=== PATIENT | female | born 1975 | race African-American/Black ===

== ENCOUNTER 2017-06-27 18:29 | Emergency (ER) | payer BC ==
[~2017-06-27] VITALS: Ht 157.5 cm; Wt 108.0 kg
[~2017-06-27 18:29] MED LIST: CYCL-36 PO; DICL50 PO; LISI-586 PO; METF500 PO
[2017-06-27 18:38] VITALS: BP 123/74; PULSE 81; RESP 16; TEMP 99; O2SAT 97
[2017-06-27] MEDS ORDERED: LISI-519 PO (18:49)
[2017-06-27] MEDS ORDERED: METF500T PO (18:49)
[2017-06-27] MEDS ORDERED: DICL50TA PO (18:49)
[2017-06-27] MEDS ORDERED: AMLO10 PO (18:49)
[2017-06-27] MEDS ORDERED: HYDR-3535 PO (18:49)
--- NOTE | 2017-06-27 19:53 | RADRPT ---
EXAM DATE/TIME: 06/27/2017 19:21 [facility] COMPARISON: No previous studies available for comparison. INDICATIONS : Cough, sore throat for 3 days MEDICAL HISTORY : None. SURGICAL HISTORY : None. ENCOUNTER: Initial ACUITY: 3 days PAIN SCORE: 4/10 LOCATION: Bilateral chest FINDINGS: PA and lateral views of the chest demonstrate the lungs to be symmetrically aerated without evidence of mass, infiltrate or effusion. The cardiomediastinal contours are unremarkable. Osseous structure s are intact. CONCLUSION: No acute disease. There is no evidence of pneumonia. Dylan Galicia MD on June 27, 2017 at 19:51 Board Certified Radiologist. This report was verified electronically.
--- NOTE | 2017-06-27 20:03 | PD ---
HPI . Cough and sore throat 2 days Chief Complaint: ENT Complaint Time Seen by Provider: 18:52 Travel History International Travel<30 days: No Contact w/Intl Traveler<30days: No Traveled to known affect area: No History of Present Illness HPI 41-year-old female presents emergency department for evaluation of cough and sore throat accompanied with voice loss 2 days. Patient states she thinks she has been running a fever at home. She's been taking naproxen to help with the throat swelling and that is also helping her voice with speaking. Patient states she has a productive cough at night and the phlegm is thick and green. Patient is currently a smoker although she states she is trying to quit. The patient is afebrile in triage and states she had a fever earlier today at work of 100. Patient works in [employer] services and is concerned about working while being sick. Patient denies any ear pain, nasal congestion, abdominal pain, nausea, vomiting or diarrhea. PFSH Past Medical History Cardiovascular Problems: Yes (HTN) Diabetes: Yes (TYPE 2) Diminished Hearing: No Hypertension: Yes Immunizations Current: Yes : 4 Para: 4 Tubal Ligation: Yes (1998) Past Surgical History Gynecologic Surgery: Yes Other Surgery: Yes (PELVIC MESH) Social History Alcohol Use: Yes (6 PK A WEEK) Tobacco Use: Yes (2 CIGS) Substance Use: No Allergies-Medications (Allergen,Severity, Reaction): Coded Allergies: shrimp (Unverified Allergy, Mild, LIP SWELLING, 06/27/17) Reported Meds & Prescriptions Reported Meds & Active Scripts Active Tessalon Perles (Benzonatate) 100 Mg Cap 100 Mg PO TID PRN 5 Days Reported Diclofenac Potassium 50 Mg Tab 50 Mg PO DAILY Lortab (Hydrocodone-Acetaminophen) 10-325 Mg Tab 0.5 Tab PO Q6H PRN Metformin (Metformin HCl) 500 Mg Tab 500 Mg PO BIDPC Norvasc (Amlodipine Besylate) 10 Mg Tab 10 Mg PO DAILY Lisinopril 5 Mg Tab 5 Mg PO DAILY Review of Systems Except as stated in HPI: all other systems reviewed are Neg Physical Exam Narrative GENERAL: Well-nourished, well-developed 41 year old female patient in no acute distress. Nontoxic appearing. SKIN: Focused skin assessment warm/dry. HEAD: Normocephalic. Atraumatic. EYES: No scleral icterus. No injection or drainage. EARS: Bilateral pinnae and external canals appear within normal limits. Bilateral tympanic membranes without erythema, dullness or perforation. THROAT: Mild pharyngeal injection, no exudates or tonsillar hypertrophy. Airway is patent. NECK: Supple, trachea midline. No JVD or lymphadenopathy. CARDIOVASCULAR: Regular rate and rhythm without gallops or rubs. Murmur appreciated. RESPIRATORY: Breath sounds equal bilaterally. No accessory muscle use. No wheezing, rhonchi or crackles noted GASTROINTESTINAL: Abdomen soft, non-tender, nondistended. MUSCULOSKELETAL: No cyanosis, or edema. Data Data Last Documented VS Vital Signs Date Time Temp Pulse Resp B/P (MAP) Pulse Ox O2 Delivery O2 Flow Rate FiO2 06/27/17 18:38 99.0 81 16 123/74 (90) 97 Orders Orders Chest, Pa & Lat (06/27/17 19:05) Ed Discharge Order (06/27/17 20:15) MDM Medical Decision Making Medical Screen Exam Complete: Yes Emergency Medical Condition: Yes Differential Diagnosis Different diagnosis included upper respiratory infection, bronchitis, pneumonia Narrative Course 41-year-old female presents emergency department for evaluation of cough, sore throat and fever 2 days. 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 Patient states that she has a productive cough and is coughing up thick green phlegm mostly at night and she is trying to sleep. Patient is a current smoker. There is no crackles, rales or wheezing noted in bilateral lungs however due to the high risk factors and the patient's history and chest x-ray is ordered. Chest x-ray shows no acute disease. Patient is discharged home with instructions for supportive care during her bronchitis and laryngitis exacerbation and instructions return to the emergency Department with any worsening condition. Given instructions to follow up with her primary care and a prescription for Tessalon Perles. Diagnosis Primary Impression: Acute bronchitis Qualified Codes: J20.9 - Acute bronchitis, unspecified Referrals: Primary Care Physician Patient Instructions: Acute Bronchitis (ED), General Instructions Departure Forms: Tests/Procedures, Work Release Special Instructions: No work until fever free 24 hours. Additional Instructions: Please return to emergency department if your symptoms return or worsen. Follow up with your primary care provider. Take medications as prescribed. Hot tea and honey may help soothe the throat. No work until fever free for 24 hours. Alternate ibuprofen and Tylenol as needed for pain or fevers. Stay hydrated, get enough rest, diet as tolerated Med/Other Pt SpecificInfo: Prescription(s) given Scripts Benzonatate (Tessalon Perles) 100 Mg Cap 100 MG PO TID Y for COUGH for 5 Days, CAP 0 Refills Prov: Vidya Land 06/27/17 Disposition: 01 DISCHARGE HOME Condition: Stable Vidya Land Jun 27, 2017 20:03
[2017-06-27] MEDS ORDERED: BENZ100 PO (20:10)
== END 2017-06-27 20:21 | disposition home or self-care (01) ==
LOC: PHEFT 18:29
DX: J20.9 Acute bronchitis, unspecified (principal); E11.9 Type 2 diabetes mellitus without complications; I10 Essential (primary) hypertension; F17.210 Nicotine dependence, cigarettes, uncomplicated; Z79.84 Long term (current) use of oral hypoglycemic drugs
CPT/HCPCS: 71020; 99283

== ENCOUNTER 2017-10-09 20:23 | Emergency (ER) | payer BC ==
[~2017-10-09 20:23] MED LIST changes: +AMLO10 PO; +BENZ100 PO; -CYCL-36 PO; -DICL50 PO; +DICL50TA PO; +HYDR-3535 PO; +LISI-519 PO; -LISI-586 PO; -METF500 PO; +METF500T PO
[2017-10-09 20:26] VITALS: BP 173/102; PULSE 74; RESP 16; TEMP 98.7; O2SAT 99
[2017-10-09 21:16] LABS: AUTOMATED NEUTROPHIL # 3.3 TH/MM3 (1.8-7.7); BASOPHIL % 0.4 % (0.0-2.0); EOSINOPHIL # 0.1 TH/MM3 (0-0.4); EOSINOPHIL % 1.1 % (0.0-4.0); HEMATOCRIT 37.7 % (35.0-46.0); HEMOGLOBIN 12.7 GM/DL (11.6-15.3); LYMPH % 39.4 % (9.0-44.0); LYMPHOCYTE # 2.6 TH/MM3 (1.0-4.8); MEAN CELL VOLUME 90.5 FL (80.0-100.0); MEAN CORPUSCULAR HEMOGLOBIN 30.4 PG (27.0-34.0); MEAN CORPUSCULAR HGB CONC 33.6 % (32.0-36.0); MEAN PLATELET VOLUME 7.9 FL (7.0-11.0); MONOCYTE # 0.6 TH/MM3 (0-0.9); NEUT % 50.1 % (16.0-70.0); PLATELET COUNT 304 TH/MM3 (150-450); RED BLOOD COUNT 4.16 MIL/MM3 (4.00-5.30); RED CELL DISTRIBUTION WIDTH 13.8 % (11.6-17.2); WHITE BLOOD COUNT 6.7 TH/MM3 (4.0-11.0)
[2017-10-09 21:36] LABS: BICARBONATE 29.5 MEQ/L (21.0-32.0); CALCIUM 8.9 MG/DL (8.5-10.1); CREATININE 0.66 MG/DL (0.50-1.00)
[2017-10-09 21:43] LABS: AMORPHOUS SEDIMENT, URINE RARE; BILIRUBIN, URINE NEG (NEG); BLOOD, URINE NEG (NEG); GLUCOSE,URINE NEG (NEG); KETONE, URINE NEG (NEG); NITRITE,URINE NEG (NEG); PH, URINE 5.5 (5.0-8.5); SQUAMOUS EPITHELIAL CELL URINE 8 /hpf (0-5); URINE COLOR LIGHT-YELLOW (YELLW/STRAW); URINE LEUKOCYTE ESTERASE NEG (NEG)
[2017-10-09] MEDS ORDERED: HYDR-3583 PO (22:26)
[2017-10-09] MEDS ORDERED: LISI40TA PO ×2 (22:26→22:31)
[2017-10-09] MEDS ORDERED: AMLO5TAB2 PO ×2 (22:26→22:31)
[2017-10-09] MEDS ORDERED: MELO7.5T27 PO (22:27)
[2017-10-09 22:28] VITALS: BP 166/94; PULSE 85; RESP 18; O2SAT 99
--- NOTE | 2017-10-09 22:31 | PD ---
HPI Chief Complaint: Hypertension Time Seen by Provider: 22:14 Travel History International Travel<30 days: No Contact w/Intl Traveler<30days: No Traveled to known affect area: No History of Present Illness HPI The patient is a 42 year old female who presents to the [facility] emergency department with a history of being out of her blood pressure medication for approximately the past month. She reports that she last saw her primary care physician approximately a year ago. She was told that she has no refills on her usual prescription when she tried to get the prescription filled. She is normally on amlodipine 5 mg daily, lisinopril 40 mg daily. Her primary care physician is Dr. Jef Astorga. She reports that she has noticed her blood pressure being up over the last 2-3 days. She reports that she has been fatigued. She reports having a frontal headache with nausea. She denies having any vomiting or diarrhea. Last bowel movement was earlier today. On review of systems otherwise she denies having any recent fevers or chills, cough or congestion, neck pain, chest pain, shortness of breath, abdominal pain , vomiting, diarrhea, urinary symptoms, or neurologic symptoms. LMP: A month ago [facility] Past Medical History Narrative Medical The patient's past medical history is significant for hypertension, diabetes mellitus, chronic low back pain with degenerative disc disease. Cardiovascular Problems: Yes Diabetes: Yes Patient Takes Glucophage: Yes (10/09/2017 1600) Diminished Hearing: No Hypertension: Yes Immunizations Current: Yes ?: Not LMP: ablasion : 4 Para: 4 Tubal Ligation: Yes (1998) Past Surgical History Narrative Surgical The patient's past surgical history is significant for an endometrial ablation, bilateral tubal ligation. Gynecologic Surgery: Yes Other Surgery: Yes (PELVIC MESH) Social History Alcohol Use: Yes (on weekend) Tobacco Use: No Substance Use: No Allergies-Medications (Allergen,Severity, Reaction): Coded Allergies: shrimp (Unverified Allergy, Mild, LIP SWELLING, 06/27/17) Reported Meds & Prescriptions Reported Meds & Active Scripts Active Lisinopril 40 Mg Tab 40 Mg PO DAILY Amlodipine (Amlodipine Besylate) 5 Mg Tab 5 Mg PO DAILY Reported Meloxicam 7.5 Mg Tab 10 Mg PO HS Hydrocodone-Acetamin 10-325 mg (Hydrocodone/Acetaminophen) 10 Mg-325 Mg Tablet 1 Tab PO Q4-6H PRN Metformin (Metformin HCl) 500 Mg Tab 500 Mg PO BIDPC Review of Systems Except as stated in HPI: all other systems reviewed are Neg General / Constitutional: No: Fever Eyes: No: Visual changes HENT: Positive: Headaches, No: Rhinorrhea, Congestion, Neck Stiffness, Neck Pain Cardiovascular: No: Chest Pain or Discomfort Respiratory: No: Cough, Shortness of Breath Gastrointestinal: Positive: Nausea, No: Vomiting, Diarrhea, Abdominal Pain Genitourinary: No: Dysuria Musculoskeletal: No: Pain Skin: No Rash Neurologic: Positive: Headache, No: Weakness, Focal Abnormalities, Change in Mentation, Slurred Speech, Sensory Disturbance Psychiatric: No: Depression Endocrine: No: Polydipsia Hematologic/Lymphatic: No: Easy Bruising Physical Exam Narrative General: The patient is a well-developed well-nourished female in no acute distress. Head and Neck exam: Head is normocephalic atraumatic. Eyes: EOMI, pupils are equal round and reactive to light. Nose: Midline septum with pink mucous membranes Mouth: Dentition unremarkable. Moist mucus membranes. Posterior oropharynx is not erythematous. No tonsillar hypertrophy. Uvula midline. Airway patent. Neck: No palpable lymphadenopathy. No nuchal rigidity. No thyromegaly. Negative Brudzinski, negative Kernig sign Cardiovascular: Regular rate and rhythm without murmurs, gallops, or rubs. Lungs: Clear to auscultation bilaterally. No wheezes, rhonchi, or rales. Abdomen: Soft, without tenderness to palpation in all 4 quadrants of the abdomen. No guarding, rebound, or rigidity. Normal bowel sounds are audible. No tenderness on palpation of McBurney's point. Negative Ramirez sign. Extremities: No clubbing, cyanosis, or edema. 2+ pulses in all 4 extremities. No calf tenderness on palpation. Back: No spinous process tenderness to palpation. No costovertebral angle tenderness to palpation. Neurologic Exam: Cranial nerves 2-12 were intact on exam. Strength is 5/5 in all 4 extremities. No sensory deficits noted. Skin Exam: No rash noted. Intact skin that is warm and dry. Data Data Last Documented VS Vital Signs Date Time Temp Pulse Resp B/P (MAP) Pulse Ox O2 Delivery O2 Flow Rate FiO2 10/09/17 22:28 85 18 166/94 (118) 99 Room Air 10/09/17 20:26 98.7 Orders Orders Complete Blood Count With Diff (10/09/17 20:36) Basic Metabolic Panel (Bmp) (10/09/17 20:36) Urinalysis - C+S If Indicated (10/09/17 20:36) Electrocardiogram (10/09/17 22:24) Ct Brain W/O Iv Contrast(Rout) (10/09/17 22:24) Iv Access Insert/Monitor (10/09/17 22:24) Ecg Monitoring (10/09/17 22:24) Oximetry (10/09/17 22:24) Ed Urine Pregnancytest Poc (10/09/17 22:24) Ondansetron Odt (Zofran Odt) (10/09/17 23:30) Lisinopril (Prinivil) (10/09/17 23:30) Ed Discharge Order (10/09/17 23:20) Labs Laboratory Tests Test 10/09/17 20:50 10/09/17 20:55 White Blood Count 6.7 TH/MM3 Red Blood Count 4.16 MIL/MM3 Hemoglobin 12.7 GM/DL Hematocrit 37.7 % Mean Corpuscular Volume 90.5 FL Mean Corpuscular Hemoglobin 30.4 PG Mean Corpuscular Hemoglobin Concent 33.6 % Red Cell Distribution Width 13.8 % Platelet Count 304 TH/MM3 Mean Platelet Volume 7.9 FL Neutrophils (%) (Auto) 50.1 % Lymphocytes (%) (Auto) 39.4 % Monocytes (%) (Auto) 9.0 % Eosinophils (%) (Auto) 1.1 % Basophils (%) (Auto) 0.4 % Neutrophils # (Auto) 3.3 TH/MM3 Lymphocytes # (Auto) 2.6 TH/MM3 Monocytes # (Auto) 0.6 TH/MM3 Eosinophils # (Auto) 0.1 TH/MM3 Basophils # (Auto) 0.0 TH/MM3 CBC Comment DIFF FINAL Differential Comment Blood Urea Nitrogen 16 MG/DL Creatinine 0.66 MG/DL Random Glucose 127 MG/DL Calcium Level 8.9 MG/DL Sodium Level 137 MEQ/L Potassium Level 4.1 MEQ/L Chloride Level 102 MEQ/L Carbon Dioxide Level 29.5 MEQ/L Anion Gap 6 MEQ/L Estimat Glomerular Filtration Rate 119 ML/MIN Urine Color LIGHT-YELLOW Urine Turbidity HAZY Urine pH 5.5 Urine Specific Davy 1.018 Urine Protein NEG mg/dL Urine Glucose (UA) NEG mg/dL Urine Ketones NEG mg/dL Urine Occult Blood NEG Urine Nitrite NEG Urine Bilirubin NEG Urine Urobilinogen LESS THAN 2.0 MG/DL Urine Leukocyte Esterase NEG Urine RBC 1 /hpf Urine Squamous Epithelial Cells 8 /hpf Urine Amorphous Sediment RARE Microscopic Urinalysis Comment CULT NOT INDICATED MDM Medical Decision Making Medical Screen Exam Complete: Yes Emergency Medical Condition: Yes Medical Record Reviewed: Yes Differential Diagnosis Intracranial hemorrhage, versus tension headache, versus migraine headache, versus hypertension related headache due to medication noncompliance Narrative Course During the course of the patient's emergency department visit, the patient's history, examination, and differential diagnosis were reviewed with the patient. The patient was placed on a compliance monitor with oximetry and frequent blood pressure monitoring. The patient had IV access obtained and blood work sent for analysis. An EKG was ordered, CT scan of the brain was ordered. The patient was initially provided Zofran for nausea and Tylenol for headache. The patient was started on lisinopril 20 mg p.o. 1, systolic blood pressure on arrival back in the room is 166, diastolic 94. The patient's laboratory studies were reviewed and remarkable for A white count of 6.7, hemoglobin 12.7, platelets 304 with 9.0 monocytes, basic metabolic profile is remarkable for a glucose of 127, urinalysis is within normal limits. Radiology studies were reviewed and remarkable for a CT scan of the brain that shows no acute abnormality. The patient will be discharged home started back on her usual antihypertensive medications that she is currently out of. She is encouraged to make a follow- up appointment with Dr. Astorga in the next 2 days for a complete physical. The patient is resting comfortably and feels better, is alert and in no distress. The patient's results and examination findings were discussed with the patient. The repeat examination is unremarkable and benign. The history, exam, diagnostic testing, and current condition do not suggest any significant pathology to warrant further testing, continued ED treatment, admission, or surgical evaluation at this point. The vital signs have been stable. The patient does not have uncontrollable pain, intractable vomiting, or other significant symptoms. The patient's condition is stable and appropriate for discharge. The patient will pursue further outpatient evaluation with a primary care physician or other designated or consulting physician as indicated in the discharge instructions. The patient expressed understanding and was agreeable with this plan. Diagnosis Primary Impression: Benign essential hypertension Additional Impression: History of medication noncompliance Referrals: Primary Care Physician 2 days Patient Instructions: Acute Headache (ED), General Instructions, Hypertension ( ED) Med/Other Pt SpecificInfo: Prescription(s) given Scripts Lisinopril (Lisinopril) 40 Mg Tab 40 MG PO DAILY for Blood Pressure Management, #30 TAB 0 Refills Prov: Mikaela Toure MD 10/09/17 Amlodipine (Amlodipine) 5 Mg Tab 5 MG PO DAILY for Blood Pressure Management, #30 TAB 0 Refills Prov: Mikaela Toure MD 10/09/17 Disposition: 01 DISCHARGE HOME Condition: Stable Mikaela Toure MD Oct 09, 2017 22:31
--- NOTE | 2017-10-09 23:15 | RADRPT ---
EXAM DATE/TIME: 10/09/2017 23:05 [facility] COMPARISON: No previous studies available for comparison. INDICATIONS : Cephalgia. RADIATION DOSE: 56.35 CTDIvol (mGy) MEDICAL HISTORY : Hypertension. Diabetes. SURGICAL HISTORY : Tubal ligation. ENCOUNTER: Initial ACUITY: 1 day PAIN SCALE: 10/10 LOCATION: cranial TECHNIQUE: Multiple contiguous axial images were obtained of the head. Using automated exposure control and adj ustment of the mA and/or kV according to patient size, radiation dose was kept as low as reasonably a chievable to obtain optimal diagnostic quality images. DICOM format image data is available electro nically for review and comparison. FINDINGS: CEREBRUM: The ventricles are normal for age. No evidence of midline shift, mass lesion, hemorrhage or acute in farction. No extra-axial fluid collections are seen. POSTERIOR FOSSA: The cerebellum and brainstem are intact. The 4th ventricle is midline. The cerebellopontine angle i s unremarkable. EXTRACRANIAL: The visualized portion of the orbits is intact. SKULL: The calvaria is intact. No evidence of skull fracture. CONCLUSION: Normal examination. Edu Carr MD on October 09, 2017 at 23:13 Board Certified Radiologist. This report was verified electronically.
[2017-10-09] MEDS ORDERED: ONDANSETRON ODT 4 MG TAB PO ONE (23:30)
[2017-10-09] MEDS ORDERED: LISINOPRIL 20 MG TAB PO ONE (23:30)
[2017-10-09] MEDS ORDERED: ACETAMINOPHEN 325 MG TAB PO ONE (23:30)
[2017-10-09 23:31] VITALS: BP 161/96
--- NOTE | 2017-10-10 21:25 | EKG ---
Date Performed: 10/09/2017 Time Performed: 22:45:48 PTAGE: 42 years EKG: Sinus rhythm POSSIBLE LEFT ATRIAL ENLARGEMENT BORDERLINE ECG PREVIOUS TRACING : 06/18/2008 09.57 Since the prior tracing, there has been no significant sanchez DOCTOR: Jef Ta Interpretating Date/Time 10/10/2017 21:23:08
== END 2017-10-09 23:39 | disposition home or self-care (01) ==
LOC: NEPE 20:23
DX: I10 Essential (primary) hypertension (principal); Z91.14 Patient's other noncompliance with medication regimen; R94.31 Abnormal electrocardiogram [ECG] [EKG]; E11.9 Type 2 diabetes mellitus without complications; Z91.013 Allergy to seafood
CPT/HCPCS: 70450; 80048; 81001; 85025; 93005; 99285